=== PATIENT | female | born 1940 | race Caucasian/White ===

== ENCOUNTER → 2020-05-08 | Outpatient (CLI) | payer MEDICARE, OTHER ==
--- NOTE | 2020-05-08 08:56 | RAD ---
INDICATION: Reason: ABN SERUM ENZYME LEVELS / Spl. Instructions: / History: COMPARISON: None. TECHNIQUE: Grayscale and color ultrasound images obtained through the abdomen. FINDINGS: Aorta/IVC: Limited visualization secondary to overlying structures obscuring. Atherosclerotic disease. Pancreas: Not well seen secondary to bowel gas. Liver: Echogenic and prominent in size. Hypoechoic region adjacent to gallbladder. Gallbladder: Gallstones are visualized. Common Bile Duct: Not dilated. Right Kidney: No hydronephrosis. Left Kidney: No hydronephrosis. Spleen: Limited visualization secondary to overlying structures obscuring. Does not appear grossly enlarged. Portion of it not well seen. IMPRESSION: * Echogenic liver which is commonly secondary to fatty infiltration. * Hypoechoic region within the left lobe the liver with an ill-defined appearance. This is nonspecific in nature but commonly secondary to focal fatty sparing although a hypoechoic liver lesion could have this appearance. If further evaluation is desired MRI could further assess. * Gallstone is visualized without common bile duct dilation Electronically signed by: Morgan Fuller MD (05/08/2020 8:53 AM) [id number]
== END ==
LOC: US 07:49
PROVIDERS: ATTEND Family Medicine
DX: K80.20 Calculus of gallbladder without cholecystitis without obstruction (principal); R74.8 Abnormal levels of other serum enzymes
CPT/HCPCS: 76700